=== PATIENT | female | born 1985 | race Caucasian/White ===

== ENCOUNTER 2023-01-08 09:17 | Emergency (ER) | payer OTHER, MEDICAID ==
[~2023-01-08] VITALS: Ht 160 cm; Wt 82.0 kg
[2023-01-08 09:22] VITALS: BP 138/87; PULSE 90; RESP 16; TEMP 97.3; O2SAT 100
[2023-01-08] MEDS ORDERED: DULOXETINE HCL 20MG DR CAPSULE PO ONE (10:00)
== END 2023-01-08 10:49 | disposition home or self-care (01) ==
LOC: ER 09:17
DX: T40.711A Poisoning by cannabis, accidental (unintentional), initial encounter (principal); F32.A Depression, unspecified; Z86.39 Personal history of other endocrine, nutritional and metabolic disease; Y92.9 Unspecified place or not applicable
CPT/HCPCS: 99283

== ENCOUNTER 2023-01-08 15:05 | Emergency (ER) | payer OTHER, MEDICAID ==
[~2023-01-08] VITALS: Ht 160 cm; Wt 82.0 kg
[2023-01-08] MEDS ORDERED: LORAZEPAM 2MG/ML CPJ IM ONE (17:00)
[2023-01-08] MEDS ORDERED: HALOPERIDOL LACTATE 5MG/ML VIAL IM ONE (17:00)
[2023-01-08 18:43] LABS: BASOPHILS % 0.8 % (0.0-2.0); EOSINOPHILS % 3.3 % (0.0-5.0); HEMATOCRIT. 35.5 % (36.0-48.0); HEMOGLOBIN. 11.9 g/dL (12.0-16.0); LYMPHOCYTES % 29.8 % (20.0-50.0); MEAN CORPUSCULAR HEMOGLOBIN 27.8 pg (28.0-32.0); MEAN CORPUSCULAR HGB CONC 33.6 g/dL (31.0-37.0); MEAN CORPUSCULAR VOLUME 82.8 fL (81.0-99.0); MEAN PLATELET VOLUME 7.2 fl (7.4-10.4); MONOCYTES % 6.9 % (2.0-8.0); NEUTROPHILS % 59.2 % (40.0-76.0); PLATELET 451 x1000/uL (130-400); RED BLOOD CELL COUNT 4.29 mill/uL (4.2-5.4); RED CELL DISTRIBUTION WIDTH 15.2 % (11.6-14.6); WHITE BLOOD COUNT 10.8 x1000/uL (4.5-11.0)
[2023-01-08 18:56] LABS: CALCIUM 9.1 mg/dL (8.5-10.1); CHLORIDE 102 mEq/L (98-107); INDEX HEMOLYSI 1 (1-3); INDEX ICTERIC 1 (1-4); INDEX LIPEMIC 1 (1-3); POTASSIUM 3.4 mEq/L (3.5-5.1); SODIUM 133 mEq/L (136-145)
[2023-01-08 18:59] LABS: HCG SCREEN NEGATIVE
[2023-01-08 19:01] LABS: ACETAMINOPHEN <2 ug/mL ug/mL (10-30); CARBON DIOXIDE 23 mEq/L (21-32); CREATININE 0.9 mg/dL (0.6-1.3); ETHANOL BLOOD < 10 mg/dL (-10); GLUCOSE 95 mg/dL (70-105); UREA NITROGEN BLOOD 8 mg/dL (7-21)
[2023-01-08 23:35] LABS: CLARITY URINE CLEAR (CLEAR); COLOR URINE YELLOW (YELLOW); GLUCOSE URINE NEGATIVE (NEGATIVE); KETONES URINE 2+ (NEGATIVE); LEUKOCYTE ESTERASE URINE TRACE (NEGATIVE); NITRITE URINE NEGATIVE (NEGATIVE); OCCULT BLOOD URINE NEGATIVE (NEGATIVE); PH URINE 5.5 (4.5-8.0); PROTEIN URINE NEGATIVE (NEGATIVE); SPECIFIC GRAVITY URINE 1.019 (1.005-1.030); UROBILINOGEN URINE 0.2 E.U./dL (0.2-1.0)
[2023-01-08 23:58] LABS: *AMPHETAMINES SCREEN URINE NEGATIVE (NEGATIVE); *BARBITURATES SCREEN URINE NEGATIVE (NEGATIVE); *BENZODIAZEPINES SCREEN URINE NEGATIVE (NEGATIVE); *COCAINE SCREEN URINE NEGATIVE (NEGATIVE); ECSTASY MDMA SCREEN URINE NEGATIVE (NEGATIVE); METHADONE URINE SCREEN NEGATIVE (NEGATIVE); OPIATES URINE SCREEN NEGATIVE (NEGATIVE); PHENCYCLIDINE URINE SCREEN NEGATIVE (NEGATIVE)
[2023-01-09 00:09] LABS: CANNABINOID URINE SCREEN PRESUMTIVE POSITIVE (NEGATIVE)
[2023-01-09] MEDS ORDERED: DIPHENHYDRAMINE 50MG/ML VIAL IM ONE ×2 (05:45→20:00)
[2023-01-09] MEDS ORDERED: LORAZEPAM 2MG/ML CPJ IM ONE (05:45)
[2023-01-09] MEDS ORDERED: HALOPERIDOL LACTATE 5MG/ML VIAL IM ONE ×2 (05:45→20:00)
[2023-01-09 05:48] LABS: RBC URINE 0-2 /hpf (0-2)
[2023-01-09 05:49] LABS: SQUAMOUS EPITHELIAL CELL URINE FEW /lpf (RARE/1+)
[2023-01-09 05:50] LABS: BACTERIA URINE NONE SEEN
[2023-01-09 06:40] VITALS: O2SAT 97
[2023-01-10] MEDS ORDERED: LORAZEPAM 2MG/ML CPJ IM ONE ×2 (01:45→21:45)
[2023-01-10] MEDS: QUETIAPINE FUMARATE 50MG TABLET PO SCH (09:00)
[2023-01-10] MEDS ORDERED: DIPHENHYDRAMINE 50MG/ML VIAL IM ONE (21:45)
[2023-01-11] MEDS ORDERED: LORAZEPAM 2MG/ML CPJ IM STA ×2 (06:20→11:34)
[2023-01-11] MEDS ORDERED: OLANZAPINE 10 MG/VIAL IM ONE ×3 (06:30→19:00)
[2023-01-11] MEDS: QUETIAPINE FUMARATE 50MG TABLET PO SCH (09:00)
[2023-01-12] MEDS ORDERED: LORAZEPAM 2MG/ML CPJ IM PRN (03:00)
[2023-01-12] MEDS ORDERED: OLANZAPINE 10 MG/VIAL IM ONE (03:00)
[2023-01-12] MEDS: OLANZAPINE 10 MG/VIAL IM NR ×2 (03:15→03:50)
[2023-01-12] MEDS: QUETIAPINE FUMARATE 50MG TABLET PO SCH ×2 (09:00→10:07)
[2023-01-12] MEDS ORDERED: LORAZEPAM 2MG/ML CPJ IM STA (09:07)
[2023-01-12] MEDS ORDERED: DIPHENHYDRAMINE 50MG/ML VIAL IM STA (09:07)
[2023-01-12] MEDS ORDERED: HALOPERIDOL LACTATE 5MG/ML VIAL IM ONE (09:15)
[2023-01-12 18:05] VITALS: BP 127/76; PULSE 74; RESP 18; TEMP 98.6
== END 2023-01-12 19:27 | disposition short-term general hospital (02) ==
LOC: ER 15:05
DX: R45.6 Violent behavior (principal); F41.9 Anxiety disorder, unspecified; F31.9 Bipolar disorder, unspecified; E03.9 Hypothyroidism, unspecified; Z20.822 Contact with and (suspected) exposure to COVID-19; Z86.39 Personal history of other endocrine, nutritional and metabolic disease; Z79.899 Other long term (current) drug therapy
CPT/HCPCS: 80048; 81003; 81025; 80307; 80329; 80320; 84703; 85025; 36415; 96372 ×5; 99285; 87426 ×2; J1630 ×3; J2060 ×5; C9803 ×2; J1200 ×3; J3490 ×2; 80305; G0480